=== PATIENT | male | born 1980 | race Caucasian/White ===

== ENCOUNTER 2023-08-21 06:00 | Observation (INO) ==
--- NOTE | 2023-08-21 06:20 | DR.GENAD ---
HPI <Kiley Daley - Last Filed: 08/28/23 00:20> Time Seen Time Seen by Provider: 08/21/23 06:20 PCP Primary Care Physician: jefferson taylor HPI Comment HPI Comment: He started feeling really bad earlier today with dizziness, n/v and headache as below; no cp, sob, abd pain, fever or chills; feels he may be dehydrated since he's been out working in the heat for the past few days. Complaint/Symptoms Chief Complaint:: pt states" I think I got dehydrated from working out in the heat for the last 2 days. I'm dizzy nausea and vomiting and have a bad headache" COVID-19 Coronavirus risk:travel/contact w/high risk person: No Has patient experienced Coronavirus symptoms: No Source History Provided: Patient Mode of Arrival Mode of Arrival: Ambulatory Timing Onset of Chief Complaint: 08/21/23 PMH <Kiley Daley - Last Filed: 08/28/23 00:20> PMH Past Medical History: Yes Past Medical History: Anxiety and Migraines Past Medical History Comment: TMI, PTSD Past Surgical History: Yes Surgical History: Ortho Surgery and Other Family History History of Family Medical Conditions: Yes Family Medical History: Hypertension Social History Alcohol Use: Occasionally Do you use any recreational Drugs:: No Lives With: Family Lives Where: Home Travel Risk Coronavirus risk:travel/contact w/high risk person: No Has patient experienced Coronavirus symptoms: No Infectious screening In the last 2 months have you had wt loss of >10#?: NO Have you had fever, night sweats or hemotysis?: No Have you traveled outside the country in the last 6 months?: No Isolation: Standard ROS <Kiley Daley - Last Filed: 08/28/23 00:20> Review of Systems Eyes: No Symptoms Reported ENTM: No Symptoms Reported Respiratoy: No Symptoms Reported Cardiovascular: No Symptoms Reported Genitourinary: No Symptoms Reported Integumentary: No Symptoms Reported Hematologic/Lymphatic: No Symptoms Reported Endocrine: No Symptoms Reported Psychiatric: No Symptoms Reported PE <Kiley Daley - Last Filed: 08/28/23 00:20> Vital Signs Vitals: Vital Signs Temperature 97.9 F Pulse Rate 109 Respiratory Rate 18 Respiratory Rate 18 Respiratory Rate 18 Blood Pressure 110/66 Blood Pressure 106/65 Blood Pressure 106/65 Blood Pressure 113/65 Blood Pressure 113/65 Blood Pressure 117/71 Blood Pressure 115/68 Blood Pressure 120/66 Blood Pressure 99/70 O2 Sat by Pulse Oximetry 96 General Limitations: No Limitations General Appearance: Alert and In No Apparent Distress Head Head Exam: Normal Inspection Eyes Eye exam: Normal Appearance Neck Neck Exam: Normal Inspection Chest Chest Inspection: Normal Inspection Respiratory Respiratory Exam: Normal Lung Sounds Bilat Respiratory Exam: Bilateral: Clear to Auscultation Cardiovascular Cardiovascular Exam: Regular Rate and Normal Rhythm Abdominal Exam Abdominal Exam: Normal Inspection, Normal Bowel Sounds and Soft Extremities Extremities Exam: Normal Inspection Back Back Exam: Normal Inspection Neurologic Neurological Exam: Alert and Oriented X3 Psychiatric Psychiatric Exam: Normal Affect and Normal Mood Skin Skin Exam: Warm, Dry, Intact and Normal Color <Waqas Latricejunior - Last Filed: 08/21/23 09:42> Vital Signs Vitals: Vital Signs Temperature 97.9 F Pulse Rate 109 Respiratory Rate 18 Respiratory Rate 18 Respiratory Rate 18 Blood Pressure 110/66 Blood Pressure 106/65 Blood Pressure 106/65 Blood Pressure 113/65 Blood Pressure 113/65 Blood Pressure 117/71 Blood Pressure 115/68 Blood Pressure 120/66 Blood Pressure 99/70 O2 Sat by Pulse Oximetry 96 <Waqas Armijo - Last Filed: 08/21/23 09:42> Treatment Treatment: 43 y/o male presents with dehydration. Patient was seen and evaluated by the night physician, Dr. Daley. He was given IV fluids. Labs show his creatinine to be markedly elevated, usually runs normal. Workup consistent with acute nontraumatic kidney injury due to dehydration. Patient also with low sodium.. Given second liter of normal saline here. Will admit for hydration. Discussed witth Dr Castano, accepts the admission. ROR <Kiley Daley - Last Filed: 08/28/23 00:20> Labs Reviewed Laboratory Results Reviewed?: Yes 08/23/23 04:40 08/23/23 04:40 Laboratory: WBC 9.3 X10^3/uL (3.6-10.0) 08/21/23 06:20 RBC 5.21 X10^6/uL (4.7-6.0) 08/21/23 06:20 Hgb 17.5 g/dL (13.5-18.0) 08/21/23 06:20 Hct 49.8 % (42.0-54.0) 08/21/23 06:20 MCV 95.7 fL (80.0-100.0) 08/21/23 06:20 MCH 33.5 pg (27.0-34.0) 08/21/23 06:20 MCHC 35.1 g/dL (33.0-35.0) H 08/21/23 06:20 RDW 13.0 % (11.6-16.5) 08/21/23 06:20 Plt Count 227 X10^3/uL (150.0-450.0) 08/21/23 06:20 MPV 7.8 fL (7.4-11.0) 08/21/23 06:20 Neut % (Auto) 56.6 % (42.0-75.0) 08/21/23 06:20 Lymph % (Auto) 32.6 % (21.0-51.0) 08/21/23 06:20 Bee % (Auto) 9.4 % (0.0-13.0) 08/21/23 06:20 Eos % (Auto) 0.7 % (0.9-2.9) L 08/21/23 06:20 Baso % (Auto) 0.7 % (0.2-1.0) 08/21/23 06:20 Neut # (Auto) 5.3 x10^3/uL (2.2-4.8) H 08/21/23 06:20 Lymph # (Auto) 3.0 X10^3/uL (1.3-2.9) H 08/21/23 06:20 Bee # (Auto) 0.9 x10^3/uL (0.3-0.8) H 08/21/23 06:20 Eos # (Auto) 0.1 x10^3/uL (0.0-0.2) 08/21/23 06:20 Baso # (Auto) 0.1 X10^3/uL (0.0-0.1) 08/21/23 06:20 Absolute Nucleated RBC 0.3 /100WBC 08/21/23 06:20 Sodium 127 mmol/L (136-145) L 08/21/23 06:20 Corrected Sodium TNP 08/21/23 06:20 Potassium 4.1 mmol/L (3.5-5.1) 08/21/23 06:20 Chloride 85 mmol/L (98-107) L 08/21/23 06:20 Carbon Dioxide 22.2 mmol/L (21-32) 08/21/23 06:20 BUN 49 mg/dL (7-18) H 08/21/23 06:20 Creatinine 3.81 mg/dL (0.70-1.30) H 08/21/23 06:20 Est GFR (MDRD) Af Amer 23 (>60) L 08/21/23 06:20 Est GFR (MDRD) Non-Af 19 (>60) L 08/21/23 06:20 Glucose 108 mg/dL (65-99) H 08/21/23 06:20 Calcium 9.7 mg/dL (8.5-10.1) 08/21/23 06:20 Corrected Calcium TNP 08/21/23 06:20 Total Bilirubin 1.10 mg/dL (0.2-1.0) H 08/21/23 06:20 AST 34 Units/L (15-37) 08/21/23 06:20 ALT 36 Units/L (12-78) 08/21/23 06:20 Alkaline Phosphatase 108 Units/L (46-116) 08/21/23 06:20 Creatine Kinase 591 Units/L (39-308) H 08/21/23 06:20 Total Protein 9.9 g/dL (6.4-8.2) H 08/21/23 06:20 Albumin 4.9 g/dL (3.4-5.0) 08/21/23 06:20 Globulin 5.0 g/dL (2.5-4.5) H 08/21/23 06:20 Albumin/Globulin Ratio 1.0 Ratio (1.1-2.1) L 08/21/23 06:20 SARS-CoV-2 (PCR) Negative (NEGATIVE) 08/21/23 06:32 Influenza Type A (PCR) Negative (NEGATIVE) 08/21/23 06:32 Influenza Type B (PCR) Negative (NEGATIVE) 08/21/23 06:32 RSV (PCR) Negative (NEGATIVE) 08/21/23 06:32 Other Results Comments: Pt has acutely diminished kidney fxn but will not hydrate more aggressively d/t low sodium; will discharge to hydrate with electrolytes and recheck next day or two; he understands he will need to rtc if he cannot keep fluids down. <Waqas Armijo - Last Filed: 08/21/23 09:42> Labs Reviewed Laboratory: WBC 9.3 X10^3/uL (3.6-10.0) 08/21/23 06:20 RBC 5.21 X10^6/uL (4.7-6.0) 08/21/23 06:20 Hgb 17.5 g/dL (13.5-18.0) 08/21/23 06:20 Hct 49.8 % (42.0-54.0) 08/21/23 06:20 MCV 95.7 fL (80.0-100.0) 08/21/23 06:20 MCH 33.5 pg (27.0-34.0) 08/21/23 06:20 MCHC 35.1 g/dL (33.0-35.0) H 08/21/23 06:20 RDW 13.0 % (11.6-16.5) 08/21/23 06:20 Plt Count 227 X10^3/uL (150.0-450.0) 08/21/23 06:20 MPV 7.8 fL (7.4-11.0) 08/21/23 06:20 Neut % (Auto) 56.6 % (42.0-75.0) 08/21/23 06:20 Lymph % (Auto) 32.6 % (21.0-51.0) 08/21/23 06:20 Bee % (Auto) 9.4 % (0.0-13.0) 08/21/23 06:20 Eos % (Auto) 0.7 % (0.9-2.9) L 08/21/23 06:20 Baso % (Auto) 0.7 % (0.2-1.0) 08/21/23 06:20 Neut # (Auto) 5.3 x10^3/uL (2.2-4.8) H 08/21/23 06:20 Lymph # (Auto) 3.0 X10^3/uL (1.3-2.9) H 08/21/23 06:20 Bee # (Auto) 0.9 x10^3/uL (0.3-0.8) H 08/21/23 06:20 Eos # (Auto) 0.1 x10^3/uL (0.0-0.2) 08/21/23 06:20 Baso # (Auto) 0.1 X10^3/uL (0.0-0.1) 08/21/23 06:20 Absolute Nucleated RBC 0.3 /100WBC 08/21/23 06:20 Sodium 127 mmol/L (136-145) L 08/21/23 06:20 Corrected Sodium TNP 08/21/23 06:20 Potassium 4.1 mmol/L (3.5-5.1) 08/21/23 06:20 Chloride 85 mmol/L (98-107) L 08/21/23 06:20 Carbon Dioxide 22.2 mmol/L (21-32) 08/21/23 06:20 BUN 49 mg/dL (7-18) H 08/21/23 06:20 Creatinine 3.81 mg/dL (0.70-1.30) H 08/21/23 06:20 Est GFR (MDRD) Af Amer 23 (>60) L 08/21/23 06:20 Est GFR (MDRD) Non-Af 19 (>60) L 08/21/23 06:20 Glucose 108 mg/dL (65-99) H 08/21/23 06:20 Calcium 9.7 mg/dL (8.5-10.1) 08/21/23 06:20 Corrected Calcium TNP 08/21/23 06:20 Total Bilirubin 1.10 mg/dL (0.2-1.0) H 08/21/23 06:20 AST 34 Units/L (15-37) 08/21/23 06:20 ALT 36 Units/L (12-78) 08/21/23 06:20 Alkaline Phosphatase 108 Units/L (46-116) 08/21/23 06:20 Creatine Kinase 591 Units/L (39-308) H 08/21/23 06:20 Total Protein 9.9 g/dL (6.4-8.2) H 08/21/23 06:20 Albumin 4.9 g/dL (3.4-5.0) 08/21/23 06:20 Globulin 5.0 g/dL (2.5-4.5) H 08/21/23 06:20 Albumin/Globulin Ratio 1.0 Ratio (1.1-2.1) L 08/21/23 06:20 SARS-CoV-2 (PCR) Negative (NEGATIVE) 08/21/23 06:32 Influenza Type A (PCR) Negative (NEGATIVE) 08/21/23 06:32 Influenza Type B (PCR) Negative (NEGATIVE) 08/21/23 06:32 RSV (PCR) Negative (NEGATIVE) 08/21/23 06:32 Opioid <Kiley Daley - Last Filed: 08/28/23 00:20> Opioid Risk Tool Age (Rene box if 16-45): Yes History of Preadolescent Sexual Abuse: No Psychological Disease: PTSD Total: 1 Total Score Risk Category: Low Risk Copyright: [employer] predicting aberrant behaviors <Waqas Armijo - Last Filed: 08/21/23 09:42> Opioid Risk Tool Total: 1 Total Score Risk Category: Low Risk Discharge Plan Diagnosis Discharge Problem: Acute dehydration, Acute hyponatremia, Nausea, Acute migraine Acute renal failure Qualifiers: Acute renal failure type: unspecified Qualified Code(s): N17.9 - Acute kidney failure, unspecified Discharge Plan Patient Disposition: ADMITTED INPATIENT Condition: Stable Orders to Discharge Patient Discharge Orders: Discharge (Routine); Ordered 08/23/23 Ordered By: Patrice River
[2023-08-21] MEDS: NS 1,000 ML IV 1,000 ML IV ONE ×2 (06:25→08:19)
[2023-08-21] MEDS: ZOFRAN INJ 4 MG VIAL IVP ONE (06:29)
[2023-08-21 06:31] LABS: BASOPHILS # (AUTO) 0.1 X10^3/uL (0.0-0.1); BASOPHILS % (AUTO) 0.7 % (0.2-1.0); EOSINOPHILS # (AUTO) 0.1 x10^3/uL (0.0-0.2); EOSINOPHILS % (AUTO) 0.7 % (0.9-2.9); HEMATOCRIT 49.8 % (42.0-54.0); HEMOGLOBIN 17.5 g/dL (13.5-18.0); LYMPHOCYTES % (AUTO) 32.6 % (21.0-51.0); MEAN CORPUSCULAR HEMOGLOBIN 33.5 pg (27.0-34.0); MEAN CORPUSCULAR HGB CONC 35.1 g/dL (33.0-35.0); MEAN CORPUSCULAR VOLUME 95.7 fL (80.0-100.0); MEAN PLATELET VOLUME 7.8 fL (7.4-11.0); MONOCYTES # (AUTO) 0.9 x10^3/uL (0.3-0.8); MONOCYTES % (AUTO) 9.4 % (0.0-13.0); NEUTROPHILS # (AUTO) 5.3 x10^3/uL (2.2-4.8); NEUTROPHILS % (AUTO) 56.6 % (42.0-75.0); PLATELET COUNT 227 X10^3/uL (150.0-450.0); RED BLOOD COUNT 5.21 X10^6/uL (4.7-6.0); WHITE BLOOD COUNT 9.3 X10^3/uL (3.6-10.0)
[2023-08-21 06:42] LABS: ALANINE AMINOTRANSFERASE 36 Units/L (12-78); ALBUMIN 4.9 g/dL (3.4-5.0); ALKALINE PHOSPHATASE 108 Units/L (46-116); ASPARTATE AMINO TRANSFERASE 34 Units/L (15-37); BLOOD UREA NITROGEN 49 mg/dL (7-18); CARBON DIOXIDE 22.2 mmol/L (21-32); CHLORIDE 85 mmol/L (98-107); CREATININE 3.81 mg/dL (0.70-1.30); GLUCOSE 108 mg/dL (65-99); POTASSIUM 4.1 mmol/L (3.5-5.1); SODIUM 127 mmol/L (136-145); TOTAL PROTEIN 9.9 g/dL (6.4-8.2); eGFR NON BLACK RACES 19 (>60)
[2023-08-21 06:51] LABS: CALCIUM 9.7 mg/dL (8.5-10.1)
[2023-08-21] MEDS: MORPHINE SULFATE INJ 2 MG INJ IVP ONE (07:05)
[2023-08-21] MEDS: NS 1,000 ML IV 1,000 ML ONE (09:17)
[2023-08-21] MEDS: ZOFRAN INJ 4 MG VIAL ONE (09:18)
[2023-08-21] MEDS ORDERED: NORCO 5/325 MG TAB PO PRN (09:22)
[2023-08-21] MEDS ORDERED: DILAUDID INJ IVP PRN (09:22)
[2023-08-21] MEDS ORDERED: TYLENOL 325 MG TAB PO PRN (09:22)
[2023-08-21] MEDS ORDERED: ULTRAM PO PRN (09:22)
[2023-08-21] MEDS ORDERED: MORPHINE SULFATE INJ 2 MG INJ IVP PRN (09:22)
[2023-08-21] MEDS: NS 1,000 ML IV 1,000 ML IV SCH (09:46)
[2023-08-21] MEDS ORDERED: KLONOPIN TAB 1 MG PO PRN (12:20)
[2023-08-21] MEDS ORDERED: IMODIUM CAP 2 MG PO PRN (12:21)
[2023-08-21] MEDS: EFFEXOR XR 150 MG CAP 24-HR PO SCH (13:19)
[2023-08-21] MEDS ORDERED: BUSPAR PO SCH (14:00)
[2023-08-21] MEDS ORDERED: HEPARIN SODIUM INJ 5000 UNITS IVP SCH (14:00)
[2023-08-21] MEDS: HEPARIN SODIUM INJ 5000 UNITS SC SCH (14:34)
--- NOTE | 2023-08-21 14:59 | DR.H&P ---
H&P History & Physical for Day of: H&P Date: 08/21/23 Chief Complaint Chief Complaint: Weakness, nausea, vomiting Allergies Allergies Allergy/AdvReac Type Severity Reaction Status Date / Time No Known Drug Allergies Allergy Verified 08/21/23 06:34 History of Present Illness History of Present Illness: Patient is a 43-year-old male with a past medical history of recurrent DVTs/PE, anxiety, PTSD, chronic diarrhea, chronic back pain and migraine presented with nausea, vomiting and generalized weakness. He states he has been working outside for the past 2 days and has not had much food intake. He reports feeling dizzy and having a headache. In the ER, he was n oted to have creatinine 3.81, sodium 127 and chloride 85. He was admitted for acute dehydration and BEBE. He was started on IV fluids. Patient states he feels better, tolerating p.o. intake. He did get some nausea and pain medicine in the ER. Labs reviewed -BUNs/creatinine 49/3.81 sodium 127 chloride 85 creatinine kinase 591 Plan: Continue hydration with normal saline at 150 cc/hr. Resume home medications except hold nephrotoxic medications. Hold Pradaxa due to acute renal injury, will start heparin prophylaxis for DVT. Monitor electrolytes, replace as per protocol. Continue regular diet. Monitor a.m. labs and imaging. Past Medical History Past Medical History: Anxiety and Migraines Past Surgical History Surgical History: Ortho Surgery and Other Family History Family Medical History: Hypertension Social History Alcohol Use: Occasionally Medications Home Medications: Home Medications Medication Instructions Recorded Confirmed Type sumatriptan succinate 6 mg/0.5 mL 6 mg subcut DAILY 02/26/23 08/21/23 History subcutaneous pen injector buspirone 10 mg tablet 10 mg PO TID 08/21/23 08/21/23 History clonazepam 1 mg tablet 1 mg PO TID PRN 08/21/23 08/21/23 History dabigatran etexilate 150 mg 150 mg PO BID 08/21/23 08/21/23 History capsule (Pradaxa) hydrocodone 7.5 mg-acetaminophen 1 tab PO QID PRN 08/21/23 08/21/23 History 325 mg tablet loperamide 2 mg capsule 2 mg PO TID PRN Diarrhea 08/21/23 08/21/23 History prazosin 2 mg capsule 2 mg PO HS 08/21/23 08/21/23 History propranolol 10 mg tablet 10 mg PO TID 08/21/23 08/21/23 History sildenafil 100 mg tablet 50 mg PO DAILY PRN 08/21/23 08/21/23 History tizanidine 4 mg tablet 4 mg PO QID 08/21/23 08/21/23 History trazodone 100 mg tablet 300 mg PO HS 08/21/23 08/21/23 History venlafaxine 150 mg 300 mg PO DAILY 08/21/23 08/21/23 History capsule,extended release 24 hr (Effexor XR) yohimbine 5 mg tablet 5 mg PO DAILY PRN 08/21/23 08/21/23 History zolpidem 10 mg tablet (Ambien) 10 mg PO QHS 08/21/23 08/21/23 History Labs 08/21/23 06:20 08/21/23 06:20 Labs: Laboratory WBC 9.3 X10^3/uL (3.6-10.0) 08/21/23 06:20 RBC 5.21 X10^6/uL (4.7-6.0) 08/21/23 06:20 Hgb 17.5 g/dL (13.5-18.0) 08/21/23 06:20 Hct 49.8 % (42.0-54.0) 08/21/23 06:20 MCV 95.7 fL (80.0-100.0) 08/21/23 06:20 MCH 33.5 pg (27.0-34.0) 08/21/23 06:20 MCHC 35.1 g/dL (33.0-35.0) H 08/21/23 06:20 RDW 13.0 % (11.6-16.5) 08/21/23 06:20 Plt Count 227 X10^3/uL (150.0-450.0) 08/21/23 06:20 MPV 7.8 fL (7.4-11.0) 08/21/23 06:20 Neut % (Auto) 56.6 % (42.0-75.0) 08/21/23 06:20 Lymph % (Auto) 32.6 % (21.0-51.0) 08/21/23 06:20 Iron % (Auto) 9.4 % (0.0-13.0) 08/21/23 06:20 Eos % (Auto) 0.7 % (0.9-2.9) L 08/21/23 06:20 Baso % (Auto) 0.7 % (0.2-1.0) 08/21/23 06:20 Neut # (Auto) 5.3 x10^3/uL (2.2-4.8) H 08/21/23 06:20 Lymph # (Auto) 3.0 X10^3/uL (1.3-2.9) H 08/21/23 06:20 Iron # (Auto) 0.9 x10^3/uL (0.3-0.8) H 08/21/23 06:20 Eos # (Auto) 0.1 x10^3/uL (0.0-0.2) 08/21/23 06:20 Baso # (Auto) 0.1 X10^3/uL (0.0-0.1) 08/21/23 06:20 Absolute Nucleated RBC 0.3 /100WBC 08/21/23 06:20 Sodium 127 mmol/L (136-145) L 08/21/23 06:20 Corrected Sodium TNP 08/21/23 06:20 Potassium 4.1 mmol/L (3.5-5.1) 08/21/23 06:20 Chloride 85 mmol/L (98-107) L 08/21/23 06:20 Carbon Dioxide 22.2 mmol/L (21-32) 08/21/23 06:20 BUN 49 mg/dL (7-18) H 08/21/23 06:20 Creatinine 3.81 mg/dL (0.70-1.30) H 08/21/23 06:20 Est GFR (MDRD) Af Amer 23 (>60) L 08/21/23 06:20 Est GFR (MDRD) Non-Af 19 (>60) L 08/21/23 06:20 Glucose 108 mg/dL (65-99) H 08/21/23 06:20 Calcium 9.7 mg/dL (8.5-10.1) 08/21/23 06:20 Corrected Calcium TNP 08/21/23 06:20 Total Bilirubin 1.10 mg/dL (0.2-1.0) H 08/21/23 06:20 AST 34 Units/L (15-37) 08/21/23 06:20 ALT 36 Units/L (12-78) 08/21/23 06:20 Alkaline Phosphatase 108 Units/L (46-116) 08/21/23 06:20 Creatine Kinase 591 Units/L (39-308) H 08/21/23 06:20 Total Protein 9.9 g/dL (6.4-8.2) H 08/21/23 06:20 Albumin 4.9 g/dL (3.4-5.0) 08/21/23 06:20 Globulin 5.0 g/dL (2.5-4.5) H 08/21/23 06:20 Albumin/Globulin Ratio 1.0 Ratio (1.1-2.1) L 08/21/23 06:20 SARS-CoV-2 (PCR) Negative (NEGATIVE) 08/21/23 06:32 Influenza Type A (PCR) Negative (NEGATIVE) 08/21/23 06:32 Influenza Type B (PCR) Negative (NEGATIVE) 08/21/23 06:32 RSV (PCR) Negative (NEGATIVE) 08/21/23 06:32 Review of Systems Constitutional: No Symptoms Reported Eyes: No Symptoms Reported ENT: No Symptoms Reported Respiratory: No Symptoms Reported Cardiovascular: No Symptoms Reported Gastrointestinal: Nausea, Vomiting and Diarrhea Genitourinary: No Symptoms Reported Musculoskeletal: Leg Pain Skin: No Symptoms Reported Neurological: No Symptoms Reported Physical Exam Vital Signs: Vital Signs Respiratory Rate 18 Respiratory Rate 18 Blood Pressure 110/69 Blood Pressure 110/66 Blood Pressure 106/65 Blood Pressure 106/65 Blood Pressure 113/65 Blood Pressure 113/65 Blood Pressure 117/71 Blood Pressure 115/68 Blood Pressure 120/66 Oriented: Normal Eyes: Normal Nose: Normal Throat: Normal Respiratory: Clear Throughout Cardiovascular: Normal Auscultation: Bowel Sounds: Normal Palpation: Normal Tenderness: Normal Skin: Normal Musculoskeletal: Normal Psychiatric: Normal Mood Description: Calm Affect: Normal Speech Pattern: Clear Assessment/Plan (1) Acute renal failure: Qualifiers: Acute renal failure type: unspecified Qualified Code(s): N17.9 - Acute kidney failure, unspecified Status: Acute (2) Nausea & vomiting: Qualifiers: Vomiting Intractability: non-intractable Vomiting type: unspecified Qualified Code(s): R11.2 - Nausea with vomiting, unspecified Status: Acute (3) Acute dehydration: Status: Acute (4) Acute hyponatremia: Status: Acute (5) Heat stroke: Qualifiers: Encounter type: initial encounter Qualified Code(s): T67.01XA - Heatstroke and sunstroke, initial encounter Status: Acute (6) Personal history of DVT (deep vein thrombosis): Status: Acute (7) Anxiety: Status: Acute (8) PTSD (post-traumatic stress disorder): Status: Acute Review H&P Reviewed: Yes Patient was examined?: Yes
[2023-08-21 15:23] VITALS: BMI 34.7
[2023-08-21] MEDS: NORCO 7.5/325 MG TAB PO PRN (16:28)
[2023-08-21] MEDS: DESYREL PO SCH (20:40)
[2023-08-21] MEDS: AMBIEN PO PRN (20:40)
[2023-08-21] MEDS ORDERED: PRADAXA PO SCH (21:00)
[2023-08-21] MEDS: ZANAFLEX PO PRN (21:23)
[2023-08-22 05:24] LABS: BASOPHILS % (AUTO) 0.6 % (0.2-1.0); EOSINOPHILS # (AUTO) 0.3 x10^3/uL (0.0-0.2); EOSINOPHILS % (AUTO) 5.9 % (0.9-2.9); HEMATOCRIT 39.9 % (42.0-54.0); LYMPHOCYTES % (AUTO) 40.8 % (21.0-51.0); MEAN CORPUSCULAR HEMOGLOBIN 32.7 pg (27.0-34.0); MEAN CORPUSCULAR HGB CONC 34.1 g/dL (33.0-35.0); MEAN CORPUSCULAR VOLUME 95.8 fL (80.0-100.0); MEAN PLATELET VOLUME 8.3 fL (7.4-11.0); MONOCYTES # (AUTO) 0.6 x10^3/uL (0.3-0.8); MONOCYTES % (AUTO) 13.1 % (0.0-13.0); NEUTROPHILS # (AUTO) 1.9 x10^3/uL (2.2-4.8); NEUTROPHILS % (AUTO) 39.6 % (42.0-75.0); PLATELET COUNT 169 X10^3/uL (150.0-450.0); RED BLOOD COUNT 4.17 X10^6/uL (4.7-6.0); RED CELL DISTRIBUTION WIDTH 13.4 % (11.6-16.5); WHITE BLOOD COUNT 4.9 X10^3/uL (3.6-10.0)
[2023-08-22 05:56] LABS: ALANINE AMINOTRANSFERASE 27 Units/L (12-78); ALKALINE PHOSPHATASE 69 Units/L (46-116); ASPARTATE AMINO TRANSFERASE 32 Units/L (15-37); BLOOD UREA NITROGEN 27 mg/dL (7-18); CALCIUM 8.1 mg/dL (8.5-10.1); CARBON DIOXIDE 30.4 mmol/L (21-32); CHLORIDE 102 mmol/L (98-107); COR CA(FOR HYPOALB) 8.9 mg/dL (8.5-10.1); CREATININE 1.13 mg/dL (0.70-1.30); GLUCOSE 107 mg/dL (65-99); POTASSIUM 3.7 mmol/L (3.5-5.1); SODIUM 140 mmol/L (136-145); TOTAL PROTEIN 6.6 g/dL (6.4-8.2); eGFR NON BLACK RACES > 60 (>60)
[2023-08-22 06:11] LABS: CREATINE KINASE 1130 Units/L (39-308)
[2023-08-22 06:24] LABS: HEMOGLOBIN 13.6 g/dL (13.5-18.0)
[2023-08-22] MEDS ORDERED: CONSULT PHARMACY - POTASSIUM & MAGNESIUM XX SCH (07:00)
[2023-08-22] MEDS: K-DUR TAB 20 MEQ PO SCH (08:08)
[2023-08-22] MEDS: FIORICET TAB PO PRN (10:26)
--- NOTE | 2023-08-22 11:18 | PCM.PROG ---
Progress Note Progress Note for Day of Date of Exam: 08/22/23 Subjective Subjective: Patient is a 43-year-old male with a past medical history of recurrent DVTs/PE, anxiety, PTSD, chronic diarrhea, chronic back pain and migraine admitted for acute dehydration, BEBE, and rhabdomyolysis. He is currently receiving IV fluids. Patient states he feels better, tolerating p.o. intake. He is reporting migraine headache. No acute events overnight. Labs reviewed -WBC 4.9, hemoglobin 13.6, platelets 169, sodium 140, potassium 3.7, creatinine 3.81>1.13, creatinine kinase 591>1130. Plan: Continue hydration with normal saline at 150 cc/hr. Resume home medications except hold nephrotoxic medications. Hold Pradaxa due to acute renal injury, continue heparin prophylaxis for DVT. Can restart pradaxa tomorrow. Monitor electrolytes, replace as per protocol. Continue regular diet. Will add fioricet prn for migraines. Monitor a.m. labs and imaging. Past Medical Family Social History Allergies: Allergies No Known Drug Allergies Allergy (Verified 08/21/23 06:34) Review of Systems ROS changes noted: see HPI Vital Signs and I&O's Vital Signs: Vital Signs Temperature 98.2 F Temperature 98.2 F Pulse Rate [Bilateral Radial] 81 Pulse Rate [Bilateral Radial] 80 Respiratory Rate 20 Respiratory Rate 20 Respiratory Rate 22 Respiratory Rate 22 Respiratory Rate 21 Blood Pressure [Left Arm] 129/61 Blood Pressure [Right Arm] 118/65 O2 Sat by Pulse Oximetry 95 O2 Sat by Pulse Oximetry 97 Intake and Output: Intake & Output 08/19/23 08/20/23 08/21/23 08/22/23 23:59 23:59 23:59 23:59 Intake Total 1921 917 / 917 Balance 1921 917 / 917 Physical Exam Oriented: Normal Eyes: Normal Nose: Normal Throat: Normal Respiratory: Normal Cardiovascular: Normal Auscultation: Bowel Sounds: Normal Tenderness: Normal Skin: Normal Musculoskeletal: Normal Psychiatric: Normal Mood Description: Calm Affect: Normal Speech Pattern: Clear and Appropriate Laboratory and Diagnostics 08/22/23 04:30 08/22/23 04:30 Labs: Laboratory WBC 4.9 X10^3/uL (3.6-10.0) 08/22/23 04:30 RBC 4.17 X10^6/uL (4.7-6.0) L 08/22/23 04:30 Hgb 13.6 g/dL (13.5-18.0) D 08/22/23 04:30 Hct 39.9 % (42.0-54.0) L 08/22/23 04:30 MCV 95.8 fL (80.0-100.0) 08/22/23 04:30 MCH 32.7 pg (27.0-34.0) 08/22/23 04:30 MCHC 34.1 g/dL (33.0-35.0) 08/22/23 04:30 RDW 13.4 % (11.6-16.5) 08/22/23 04:30 Plt Count 169 X10^3/uL (150.0-450.0) 08/22/23 04:30 MPV 8.3 fL (7.4-11.0) 08/22/23 04:30 Neut % (Auto) 39.6 % (42.0-75.0) L 08/22/23 04:30 Lymph % (Auto) 40.8 % (21.0-51.0) 08/22/23 04:30 Terrell % (Auto) 13.1 % (0.0-13.0) H 08/22/23 04:30 Eos % (Auto) 5.9 % (0.9-2.9) H 08/22/23 04:30 Baso % (Auto) 0.6 % (0.2-1.0) 08/22/23 04:30 Neut # (Auto) 1.9 x10^3/uL (2.2-4.8) L 08/22/23 04:30 Lymph # (Auto) 2.0 X10^3/uL (1.3-2.9) 08/22/23 04:30 Terrell # (Auto) 0.6 x10^3/uL (0.3-0.8) 08/22/23 04:30 Eos # (Auto) 0.3 x10^3/uL (0.0-0.2) H 08/22/23 04:30 Baso # (Auto) 0.0 X10^3/uL (0.0-0.1) 08/22/23 04:30 Absolute Nucleated RBC 0.2 /100WBC 08/22/23 04:30 Sodium 140 mmol/L (136-145) 08/22/23 04:30 Corrected Sodium TNP 08/22/23 04:30 Potassium 3.7 mmol/L (3.5-5.1) 08/22/23 04:30 Chloride 102 mmol/L (98-107) 08/22/23 04:30 Carbon Dioxide 30.4 mmol/L (21-32) 08/22/23 04:30 BUN 27 mg/dL (7-18) H 08/22/23 04:30 Creatinine 1.13 mg/dL (0.70-1.30) 08/22/23 04:30 Est GFR (MDRD) Af Amer > 60 (>60) 08/22/23 04:30 Est GFR (MDRD) Non-Af > 60 (>60) 08/22/23 04:30 Glucose 107 mg/dL (65-99) H 08/22/23 04:30 Calcium 8.1 mg/dL (8.5-10.1) L 08/22/23 04:30 Corrected Calcium 8.9 mg/dL (8.5-10.1) 08/22/23 04:30 Magnesium 2.2 mg/dL (2.0-2.9) 08/22/23 04:30 Total Bilirubin 0.30 mg/dL (0.2-1.0) 08/22/23 04:30 AST 32 Units/L (15-37) 08/22/23 04:30 ALT 27 Units/L (12-78) 08/22/23 04:30 Alkaline Phosphatase 69 Units/L (46-116) 08/22/23 04:30 Creatine Kinase 1130 Units/L (39-308) H 08/22/23 04:30 Total Protein 6.6 g/dL (6.4-8.2) 08/22/23 04:30 Albumin 3.0 g/dL (3.4-5.0) L 08/22/23 04:30 Globulin 3.6 g/dL (2.5-4.5) 08/22/23 04:30 Albumin/Globulin Ratio 0.8 Ratio (1.1-2.1) L 04/18/24 04:30 SARS-CoV-2 (PCR) Negative (NEGATIVE) 08/21/23 06:32 Influenza Type A (PCR) Negative (NEGATIVE) 08/21/23 06:32 Influenza Type B (PCR) Negative (NEGATIVE) 08/21/23 06:32 RSV (PCR) Negative (NEGATIVE) 08/21/23 06:32 Plan (1) Acute renal failure: Status: Acute Qualifiers: Acute renal failure type: unspecified Qualified Code(s): N17.9 - Acute kidney failure, unspecified (2) Nausea & vomiting: Status: Acute Qualifiers: Vomiting Intractability: non-intractable Vomiting type: unspecified Qualified Code(s): R11.2 - Nausea with vomiting, unspecified (3) Acute dehydration: Status: Acute (4) Acute hyponatremia: Status: Acute (5) Heat stroke: Status: Acute Qualifiers: Encounter type: initial encounter Qualified Code(s): T67.01XA - Heatstroke and sunstroke, initial encounter (6) Personal history of DVT (deep vein thrombosis): Status: Acute (7) Anxiety: Status: Acute (8) PTSD (post-traumatic stress disorder): Status: Acute (9) Rhabdomyolysis: Status: Acute
[2023-08-22] MEDS: BUSPAR PO SCH (15:15)
[2023-08-22] MEDS: PATIENT'S HOME MEDICATION PO SCH (20:06)
[2023-08-22 23:29] VITALS: RESP 20
[2023-08-23 05:34] LABS: BASOPHILS % (AUTO) 0.3 % (0.2-1.0); EOSINOPHILS # (AUTO) 0.2 x10^3/uL (0.0-0.2); EOSINOPHILS % (AUTO) 4.8 % (0.9-2.9); HEMOGLOBIN 12.3 g/dL (13.5-18.0); LYMPHOCYTES # (AUTO) 1.8 X10^3/uL (1.3-2.9); LYMPHOCYTES % (AUTO) 37.1 % (21.0-51.0); MEAN CORPUSCULAR HEMOGLOBIN 33.1 pg (27.0-34.0); MEAN CORPUSCULAR HGB CONC 34.2 g/dL (33.0-35.0); MEAN CORPUSCULAR VOLUME 96.9 fL (80.0-100.0); MEAN PLATELET VOLUME 8.2 fL (7.4-11.0); MONOCYTES # (AUTO) 0.5 x10^3/uL (0.3-0.8); MONOCYTES % (AUTO) 10.6 % (0.0-13.0); NEUTROPHILS # (AUTO) 2.3 x10^3/uL (2.2-4.8); NEUTROPHILS % (AUTO) 47.2 % (42.0-75.0); PLATELET COUNT 145 X10^3/uL (150.0-450.0); RED BLOOD COUNT 3.71 X10^6/uL (4.7-6.0); RED CELL DISTRIBUTION WIDTH 13.3 % (11.6-16.5)
[2023-08-23 05:42] LABS: ALANINE AMINOTRANSFERASE 27 Units/L (12-78); ALBUMIN 2.7 g/dL (3.4-5.0); ALKALINE PHOSPHATASE 59 Units/L (46-116); ASPARTATE AMINO TRANSFERASE 31 Units/L (15-37); BLOOD UREA NITROGEN 16 mg/dL (7-18); CALCIUM 8.1 mg/dL (8.5-10.1); CARBON DIOXIDE 29.6 mmol/L (21-32); CHLORIDE 105 mmol/L (98-107); COR CA(FOR HYPOALB) 9.1 mg/dL (8.5-10.1); CREATINE KINASE 651 Units/L (39-308); CREATININE 0.82 mg/dL (0.70-1.30); GLUCOSE 89 mg/dL (65-99); POTASSIUM 3.8 mmol/L (3.5-5.1); SODIUM 141 mmol/L (136-145); TOTAL PROTEIN 5.9 g/dL (6.4-8.2); eGFR NON BLACK RACES > 60 (>60)
[2023-08-23] MEDS ORDERED: CONSULT PHARMACY - POTASSIUM & MAGNESIUM XX SCH (07:00)
[2023-08-23] MEDS: K-DUR TAB 20 MEQ PO SCH (08:24)
[2023-08-23] MEDS: PRADAXA PO SCH (08:24)
[2023-08-23 09:12] VITALS: BP 133/68; PULSE 81; TEMP 97.9; O2SAT 98
== END 2023-08-23 10:50 | disposition home or self-care (01) ==
LOC: MED/SURG 06:05 → ER 06:05 → U 06:05
PROVIDERS: ADMIT Internal Medicine; ATTEND Internal Medicine
DX: R11.2 Nausea with vomiting, unspecified; R51.9 Headache, unspecified; F41.8 Other specified anxiety disorders; M62.82 Rhabdomyolysis; E86.0 Dehydration; N17.8 Other acute kidney failure; F43.10 Post-traumatic stress disorder, unspecified; E87.1 Hypo-osmolality and hyponatremia; Z86.718 Personal history of other venous thrombosis and embolism; G43.809 Other migraine, not intractable, without status migrainosus; R53.1 Weakness; R42 Dizziness and giddiness